=== PATIENT | female | born 1960 ===

== ENCOUNTER → 2017-03-22 | Outpatient (CLI) | payer BC ==
[2017-03-22 13:52] LABS: ESTIMATED AVERAGE GLUCOSE 146 mg/dl; HA1C FLAG Normal (Normal)
[2017-03-22 14:20] LABS: RATIO 17.2 mcg/mg (0-30.0)
[2017-03-22 14:33] LABS: ALT/SGPT 24 U/L (12-78); AST/SGOT 17 U/L (15-37); BLOOD UREA NITROGEN 20 mg/dl (7-18); BUN/CREATININE RATIO 19.6 (10-20); CALCIUM 8.2 mg/dl (8.5-10.1); CARBON DIOXIDE 25 mmol/L (21-32); CHLORIDE 106 mmol/L (98-107); GLUCOSE 155 mg/dl (70-99); POTASSIUM 3.9 mmol/L (3.5-5.1); SODIUM 140 mmol/L (136-145)
[2017-03-22 14:36] LABS: ALB/GLOB RATIO 0.8 (0.9-2); ALKALINE PHOSPHATASE 79 U/L (45-117); CHOLESTEROL 151 mg/dl (0-200); CHOLESTEROL/HDL RATIO 6.6; HDL CHOLESTEROL 23 mg/dl; LDL CHOLESTEROL CALCULATED 53 mg/dl; TRIGLYCERIDES 376 mg/dl (0-150); VERY LOW DENSITY LIPOPROT CALC 75 mg/dl
== END ==
LOC: C.LABMFLN 11:34
PROVIDERS: ATTEND Family Medicine
DX: E78.00 Pure hypercholesterolemia, unspecified (principal); I10 Essential (primary) hypertension; E11.40 Type 2 diabetes mellitus with diabetic neuropathy, unspecified; H66.92 Otitis media, unspecified, left ear; J44.1 Chronic obstructive pulmonary disease with (acute) exacerbation

== ENCOUNTER → 2018-01-03 | Outpatient (CLI) | payer BC ==
[2018-01-03 18:25] LABS: ALBUMIN 3.8 gm/dl (3.4-5.0); ALT/SGPT 29 U/L (12-78); BLOOD UREA NITROGEN 30 mg/dl (7-18); CARBON DIOXIDE 24 mmol/L (21-32); CREATININE 1.08 mg/dl (0.60-1.20); GLUCOSE 110 mg/dl (70-99); POTASSIUM 4.1 mmol/L (3.5-5.1); SODIUM 138 mmol/L (136-145)
[2018-01-03 18:27] LABS: ALKALINE PHOSPHATASE 88 U/L (45-117); AST/SGOT 20 U/L (15-37); CHOLESTEROL 176 mg/dl (0-200); LDL CHOLESTEROL CALCULATED 74 mg/dl; TOTAL PROTEIN 7.7 gm/dl (6.4-8.2)
[2018-01-04 07:23] LABS: HEMOGLOBIN A1C 6.3 % (4.5-5.6)
== END | disposition home or self-care (01) ==
LOC: C.LABMFLN 16:18
PROVIDERS: ATTEND Family Medicine
DX: R74.0 Nonspecific elevation of levels of transaminase and lactic acid dehydrogenase [LDH] (principal); E78.00 Pure hypercholesterolemia, unspecified; E11.40 Type 2 diabetes mellitus with diabetic neuropathy, unspecified